=== PATIENT | female | born 1985 | race Two or more races ===

== ENCOUNTER 2021-06-07 10:45 | Observation (INO) | payer MEDICAID ==
[2021-06-07] MEDS ORDERED: NIF10C GT (11:28)
[2021-06-07] MEDS ORDERED: PREN-96 PO (11:28)
[2021-06-07] MEDS ORDERED: BETAMETHASONE ACET (30mg/5ml) 5ml Vial 6mg/ml IM ONE (11:45)
== END 2021-06-07 12:40 | disposition home or self-care (01) ==
LOC: LDRP 10:45
PROVIDERS: ADMIT Obstetrics & Gynecology; ATTEND Obstetrics & Gynecology
DX: O60.03 Preterm labor without delivery, third trimester (principal); Z3A.34 34 weeks gestation of pregnancy
CPT/HCPCS: 59025; 81002; 96372; G0378; J0702

== ENCOUNTER 2021-06-08 12:30 | Observation (INO) | payer MEDICAID ==
[~2021-06-08 12:30] MED LIST: NIF10C GT; PREN-96 PO
[2021-06-08] MEDS ORDERED: BETAMETHASONE ACET (30mg/5ml) 5ml Vial 6mg/ml IM ONE (13:00)
== END 2021-06-08 14:45 | disposition home or self-care (01) ==
LOC: LDRP 12:30
PROVIDERS: ADMIT Obstetrics & Gynecology; ATTEND Obstetrics & Gynecology
DX: O60.03 Preterm labor without delivery, third trimester (principal); O26.873 Cervical shortening, third trimester; Z3A.34 34 weeks gestation of pregnancy
CPT/HCPCS: 59025; 81002; 94760; 96372; G0378

== ENCOUNTER 2021-06-15 13:10 | Observation (INO) | payer BC | END 2021-06-15 14:51 | disposition home or self-care (01) | LOC: LDRP 13:10 | PROVIDERS: ADMIT Obstetrics & Gynecology; ATTEND Obstetrics & Gynecology | DX: O60.03 Preterm labor without delivery, third trimester (principal); Z3A.35 35 weeks gestation of pregnancy | CPT/HCPCS: 59025; 76818; 81002; 94760; G0378 ==

== ENCOUNTER 2021-07-18 09:14 | Observation (INO) | payer BC | END 2021-07-18 12:00 | disposition home or self-care (01) | LOC: LDRP 09:14 | PROVIDERS: ADMIT Obstetrics & Gynecology; ATTEND Obstetrics & Gynecology | DX: O48.0 Post-term pregnancy (principal); O62.9 Abnormality of forces of labor, unspecified; Z3A.40 40 weeks gestation of pregnancy | CPT/HCPCS: 59025; 76818; 81002; 94760; G0378; G0379 ==